=== PATIENT | female | born 1930 | race Caucasian/White ===

== ENCOUNTER → 2018-01-16 | Outpatient (CLI) | payer MEDICARE ==
[~2018-01-16] MED LIST: ASPI-555 PO; BUME1TAB12 PO; CALC-1009 PO; FERR325C PO; FOLI0.8T2 PO; FOLI1TAB48 PO; LOSA25TA21 PO; METO-408 PO; OMEG1CAP6 PO; PANT40TA25 PO; PRAV40TA3 PO
== END | disposition home or self-care (01) ==
LOC: OIH 11:31
PROVIDERS: ATTEND Internal Medicine
DX: J44.9 Chronic obstructive pulmonary disease, unspecified (principal)
CPT/HCPCS: 71046

== ENCOUNTER → 2018-09-18 | Outpatient (CLI) | payer MEDICARE ==
[~2018-09-18] MED LIST changes: +LOSA25TA16 PO; -LOSA25TA21 PO
== END | disposition home or self-care (01) ==
LOC: SHCH 13:41
PROVIDERS: ATTEND Internal Medicine Cardiovascular Disease
DX: I08.3 Combined rheumatic disorders of mitral, aortic and tricuspid valves (principal); I27.20 Pulmonary hypertension, unspecified; I25.10 Atherosclerotic heart disease of native coronary artery without angina pectoris; I48.91 Unspecified atrial fibrillation; Z72.89 Other problems related to lifestyle
CPT/HCPCS: 93306

== ENCOUNTER → 2018-10-01 | Outpatient (CLI) | payer MEDICARE | END | disposition home or self-care (01) | LOC: SHCH 12:57 | PROVIDERS: ATTEND Internal Medicine Cardiovascular Disease | DX: I87.2 Venous insufficiency (chronic) (peripheral) (principal); I71.3 Abdominal aortic aneurysm, ruptured; I73.9 Peripheral vascular disease, unspecified; I25.10 Atherosclerotic heart disease of native coronary artery without angina pectoris; I48.91 Unspecified atrial fibrillation; Z72.89 Other problems related to lifestyle | CPT/HCPCS: 93925; 93970 ==

== ENCOUNTER → 2018-11-03 | Outpatient (CLI) | payer MEDICARE ==
[~2018-11-03] MED LIST changes: +IOHEXOL 350 MG/ML 100ML INFUS..BTL IV ONE; +IOHEXOL-350 50ML VIAL IV ONE
== END | disposition home or self-care (01) ==
LOC: RAH 09:55
PROVIDERS: ATTEND Internal Medicine Cardiovascular Disease
DX: I70.0 Atherosclerosis of aorta (principal); I73.9 Peripheral vascular disease, unspecified; K57.30 Diverticulosis of large intestine without perforation or abscess without bleeding
CPT/HCPCS: 75635; Q9967 ×2

== ENCOUNTER → 2019-01-28 | Outpatient (CLI) | payer MEDICARE ==
[~2019-01-28] MED LIST changes: -IOHEXOL 350 MG/ML 100ML INFUS..BTL IV ONE; -IOHEXOL-350 50ML VIAL IV ONE; -LOSA25TA16 PO; +LOSA25TA41 PO
== END | disposition home or self-care (01) ==
LOC: RAH 14:19
PROVIDERS: ATTEND Internal Medicine
DX: R55 Syncope and collapse (principal)
CPT/HCPCS: 93880

== ENCOUNTER → 2019-02-13 | Outpatient (CLI) | payer MEDICARE | END | disposition home or self-care (01) | LOC: SHCH 16:13 | PROVIDERS: ATTEND Internal Medicine Cardiovascular Disease | DX: I35.8 Other nonrheumatic aortic valve disorders (principal) | CPT/HCPCS: 93306 ==

== ENCOUNTER → 2020-11-29 | Outpatient (CLI) | payer MEDICARE ==
[~2020-11-29] MED LIST changes: -ASPI-555 PO; +ASPI-556 PO; -BUME1TAB12 PO; +BUME1TAB6 PO; +CYAN25002 SL; -FOLI1TAB48 PO; +FOLI1TAB85 PO; -METO-408 PO; -OMEG1CAP6 PO; -PANT40TA25 PO; +PANT40TA55 PO
== END | disposition home or self-care (01) ==
LOC: SHCH 10:00
PROVIDERS: ATTEND Internal Medicine Cardiovascular Disease
DX: I08.3 Combined rheumatic disorders of mitral, aortic and tricuspid valves (principal); I10 Essential (primary) hypertension
CPT/HCPCS: 93306; 93356

== ENCOUNTER → 2021-06-13 | Outpatient (CLI) | payer MEDICARE | END | disposition home or self-care (01) | LOC: RAH 09:25 | PROVIDERS: ATTEND Internal Medicine | DX: K80.20 Calculus of gallbladder without cholecystitis without obstruction (principal) | CPT/HCPCS: 76705 ==